=== PATIENT | male | born 1990 | race Caucasian/White ===

== ENCOUNTER 2017-03-18 08:14 | Emergency (ER) | payer BC ==
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
[2017-03-18 08:52] VITALS: RESP 16; TEMP 98.4
[2017-03-18 09:56] VITALS: BP 142/72; PULSE 87; O2SAT 97
== END 2017-03-18 10:15 | disposition home or self-care (01) ==
LOC: MERGE 08:14 → EDBD 08:14
DX: S00.81XA Abrasion of other part of head, initial encounter (principal); V03.10XA Pedestrian on foot injured in collision with car, pick-up truck or van in traffic accident, initial encounter; Y92.410 Unspecified street and highway as the place of occurrence of the external cause; Y99.8 Other external cause status; Y93.89 Activity, other specified